=== PATIENT | female | born 1975 | race Caucasian/White ===

== ENCOUNTER → 2018-06-02 10:47 | Outpatient (CLI) | payer OTHER, SELFPAY ==
[2015-08-19 22:17] VITALS: BMI 38.1
[2018-06-04 14:45] LABS: HPV APTIMA, High Risk Positive (Negative)
== END ==
PROVIDERS: PCP Family Medicine; Visit Provider Obstetrics & Gynecology
DX: Z12.4 Encounter for screening for malignant neoplasm of cervix (principal)
CPT/HCPCS: 87624; 88175; G0145

== ENCOUNTER → 2018-06-11 13:55 | Outpatient (CLI) | payer OTHER, SELFPAY ==
[2015-08-19 22:17] VITALS: BMI 38.1
--- NOTE | 2018-06-11 | VAGMU_PTH ---
PATIENT: ROBERTO WILBURN LOC: ED U#:[id number] AGE/SX: 49/F ROOM: RE06/11/[address]: Dr. Altagracia Castro MD : 1975 BED: DIS: SPEC #: [id number] RECD: 06/11/18 13:49 STATUS: LETICIA LENORA #: [id number] AYDEN: 06/11/18 00:[address]: Altagracia Ha DEPT: SURGICAL PATHOLOGY RECD BY: Edson Tillman ENTERED: 06/11/18 14:10 SP TYPE: VAG MUCOSA OTHR DR: Dr. Britany Eugene MD Tissues: Vagina, NOS Procedures: Surgery Specimen Level III HEADER OPERATION: Colposcopy with biopsy PRE-OP DIAGNOSIS: RADHA R87.612 TISSUE SUBMITTED: Vaginal biopsy MICROSCOPIC DIAGNOSIS Vaginal biopsy: A fragment of squamous mucosa, negative for dysplasia. SJ:stacie 06/12/18 COMMENT Clinical correlation and appropriate follow up are necessary. Please make reference to previous specimen ([id number]), uterus, bilateral fallopian tubes with diagnosis of cervix, chronic inflammation and squamous metaplasia, negative for dysplasia, endometrium, secretory endometrium, myometrium, intramural leiomyomas and bilateral fallopian tubes, no pathologic diagnosis. MICROSCOPIC DESCRIPTION Slides are reviewed. GROSS DESCRIPTION Received in fixative is one container labeled with the patient's name and designated vaginal biopsy. The specimen consists of a single irregular fragment of pink-villareal soft tissue measuring 0.3 x 0.2 x 0.2 cm. The specimen is totally submitted in one cassette. / AM:stacie 06/11/18 TC:4 CPT: 80632
== END ==
PROVIDERS: Family Provider Family Medicine; PCP Family Medicine; Referring Provider Obstetrics & Gynecology; Visit Provider Obstetrics & Gynecology
DX: R87.612 Low grade squamous intraepithelial lesion on cytologic smear of cervix (LGSIL) (principal)
CPT/HCPCS: 88304

== ENCOUNTER → 2019-03-23 16:20 | Outpatient (CLI) | payer OTHER, SELFPAY ==
[2015-08-19 22:17] VITALS: BMI 38.1
[2019-03-29 14:45] LABS: HPV APTIMA, High Risk Negative (Negative)
== END ==
PROVIDERS: PCP Family Medicine; Referring Provider Obstetrics & Gynecology; Visit Provider Obstetrics & Gynecology
DX: R87.612 Low grade squamous intraepithelial lesion on cytologic smear of cervix (LGSIL) (principal)
CPT/HCPCS: 87624; 88175; G0145

== ENCOUNTER → 2022-06-21 | Outpatient (CLI) | payer OTHER, SELFPAY ==
--- NOTE | 2022-06-21 15:24 | BI_ITS ---
MAMMOGRAPHY - BILATERAL SCREENING REASON FOR EXAM: Female, 46 years old. Routine annual screening examination. PERTINENT HISTORY: Non-contributory. TECHNIQUE: Digital bilateral breast liliana (3D mammographic acquisition) in the CC and MLO projections. 2-D mediolateral oblique (MLO) and craniocaudad (CC) views of both breasts were obtained. CAD: Full Field Digital Mammography with Computer Added Detection was performed. COMPARISON: None. Baseline examination. FINDINGS: Breast Composition: There are scattered areas of fibroglandular density. There are no dominant masses or suspicious calcifications. Small benign-appearing left axillary nodes. No other significant abnormalities are identified. BI/SCRN MAMM (CAD)W/LILIANA BILAT IMPRESSION: Negative screening mammogram. Yearly followup mammogram recommended. (A) ASSESSMENT CATEGORY: BIRADS Category 1: Negative. A letter regarding these results will be sent to the patient by the facility within 30 days. Approximately 10% of breast cancers are not detected by mammography. A normal mammogram should not delay biopsy of a clinically suspicious abnormality. [id number] Electronically Signed: Payam Regan MD at 8:23 EDT ,
== END | disposition home or self-care (01) ==
LOC: OPBI 15:23
PROVIDERS: PCP Family Medicine; Referring Provider Obstetrics & Gynecology; Visit Provider Obstetrics & Gynecology
DX: Z12.31 Encounter for screening mammogram for malignant neoplasm of breast (principal)
CPT/HCPCS: 77063; 77067

== ENCOUNTER 2024-04-17 22:40 | Emergency (ER) | payer OTHER, SELFPAY ==
[2024-04-17 22:41] VITALS: BP 155/89; PULSE 62; RESP 16; TEMP 36.5; O2SAT 100; BMI 36.1
--- NOTE | 2024-04-17 23:10 | EKG12_ITS ---
Test Reason : ABD PAIN Blood Pressure : */* mmHG Vent. Rate : 59 BPM Atrial Rate : 59 BPM P-R Int : 160 ms QRS Dur : 92 ms QT Int : 458 ms P-R-T Axes : 44 40 62 degrees QTcB Int : 453 ms Sinus bradycardia Otherwise normal ECG Confirmed by YESSY YAO, MATILDE ([id number]), associate editor TERRIE FERRER ([id number]) on 04/19/2024 8:23:44 AM Referred By: Confirmed By: MATILDE KRISHNAMURTHY MD
[2024-04-17 23:19] LABS: Bacteria 0 SEEN /hpf (None Seen); Mucous, Urine 0 SEEN /hpf (<or=2+); Squamous Epithelial Cells - UA 0 SEEN /hpf (5-10); White Blood Cells 0 SEEN /hpf (0-5)
[2024-04-17] MEDS: 0.9% Normal Saline (1000mL) 1,000 ML 999 ML IV (23:19)
[2024-04-17] MEDS: Mag Hydrox/Al Hydrox/Simeth 30 ML UDC PO (23:19)
[2024-04-17] MEDS: Lidocaine 2% Viscous15 ML UDC 15 ML PO (23:19)
[2024-04-17] MEDS: Famotidine 200 MG/20 ML MDV 20 MG in 0.9% Normal Saline (Pres. free 8 ML 300 MG IV (23:19)
[2024-04-17 23:21] LABS: Absolute Lymphocyte Count 1.51 X10^3/uL (0.83-4.51); Absolute Neutrophil Count 3.8 X10^3/uL (2.0-7.7); Basophil# 0.02 X10^3/uL; Basophil% 0.3 % (0-1); Eosinophil# 0.05 X10^3/uL; Eosinophils% 0.9 % (0-5); Hematocrit 40.8 % (37-47); Hemoglobin 13.4 g/dL (12.0-15.0); Lymphocyte # 1.51 X10^3/ul (0.83-4.51); Lymphocyte % 26.3 % (19-41); Mean Corp Hgb Conc 32.8 g/dL (32-36); Mean Corpuscular Hgb 29.6 pg (27.0-32.0); Mean Corpuscular Volume 90.3 fL (81-99); Mean Platelet Vol. 11.6 fl (6.2-12.0); Monocyte# 0.35 X10^3/uL; Monocyte% 6.1 % (0-10); NRBC Flagged by Analyzer 0 % (0-5); Neutrophil # 3.79 X10^3/uL (2.7-7.7); Neutrophil % 66.1 % (47-70); Platelet Count 151 K/mm3 (150-450); RBC Distribution Width CV 13.1 % (11.6-14.6); RBC Distribution Width SD 43.2 fl (35.1-43.9); Red Blood Count 4.52 M/mm3 (4.2-5.4); White Blood Count 5.7 K/mm3 (4.4-11.0)
[2024-04-17 23:22] LABS: Color, Urine Straw (Yellow); Glucose, Dipstick Normal (Normal); Ketone-Dipstick Negative (Negative); Leukocyte Esterase-Dipstick Negative /ul (Negative); Nitrite-Dipstick Negative (Negative); Occult Blood-Urine Negative /ul (Negative); Protein-Dipstick Negative (Negative); Urine Bilirubin Dipstick Negative (Negative); Urine Clarity Clear (Clear); Urine Urobilinogen Normal (Normal)
[2024-04-17 23:30] LABS: Internal QC Validated? YES +Cl - CLEAR BKGD; Pregnancy, Urine Negative Negative; Red Blood Cells-Urine 0 SEEN /hpf (0-5)
[2024-04-17 23:39] LABS: AST(SGOT) 18 U/L (15-37); Alanine Aminotransfer ALT/SGPT 23 U/L (13-56); Alkaline Phosphatase 80 U/L (45-117); Anion Gap 7 (5-15); BUN 12 mg/dL (7-18); BUN/Creat Ratio 20.5 RATIO (10-20); Calcium,Total 9.1 mg/dL (8.5-10.1); Chloride 105 mmol/L (98-107); Creatinine, Serum 0.59 mg/dL (0.55-1.02); EST Glomerular Filtration Rate 117 mL/min (>60); Est Glom Filt Rate - Afr Amer 141 mL/min (>60); Estimated Creatinine Clearance 136.87 ml/min; Globulin 3.4 g/dL (2.2-4.2); Glucose 85 mg/dL (74-106); Lipase 18 U/L (73-393); Potassium 3.3 mmol/L (3.5-5.1); Protein, Total 7.4 g/dL (6.4-8.2); Sodium Level 139 mmol/L (136-145)
--- NOTE | 2024-04-17 23:40 | EDS_ITS ---
HPI History of Present Illness Chief Complaint: Abd Pain Informant: patient Narrative Narrative: Patient is a 48-year-old female with a past medical history of hypothyroidism. She recently saw general surgery and is scheduled to have an EGD and colonoscopy this upcoming Friday secondary to issues with chronic reflux/GERD and change in bowel habits. She states that today she started with her prep for the EGD and this afternoon noticed increasing pain in the right upper quadrant and midepigastric region. She states the symptoms have not resolved and secondary to this comes in for evaluation. 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 Menometrorrhagia Vertigo Home Medications ?Medication ?Instructions ?Recorded ?Last Taken ?Type estradiol 0.075 mg/24 hr 1 patch transdermal 2XW 04/03 Unknown History semiweekly transdermal patch iron, carbonyl 45 mg tablet 45 mg PO MOWE 04/12/24 Unk nown History levothyroxine 75 mcg capsule 75 mcg PO QDAY 04/12/24 U nknown History multivitamin 1 tab PO QDAY 04/12/24 Unkno wn History Allergy/AdvReac Type Severity Reaction Status Date / Time erythromycin base Allergy KEEPS ME Verified 04/17/24 22:41 AWAKE Penicillins Allergy Hives Verified 04/17/24 22:41 Family History Mother Diabetes Hypertension Surgical History History of partial hysterectomy Social History Smoking Status: Never smoker alcohol intake: current substance use type: does not use ROS ROS ED Constitutional Constitutional ED: Denies chills or fever(s) Eyes Eyes: Denies change in vision or diplopia ENT ENT ED: Denies sore throat Cardiovascular Cardiovascular: Denies chest pain Respiratory/Chest Respiratory/Chest: Denies cough or dyspnea Gastrointestinal Gastrointestinal: Reports abdominal pain and nausea; Denies diarrhea or vomiting Genitourinary Genitourinary ED: Reports urinary frequency; Denies dysuria or hematuria Musculoskeletal Musculoskeletal: Reports back pain Integumentary Denies rash Neurologic Neurologic: Denies headache(s) Hematologic/Lymphatic Hematologic/Lymphatic: Denies easy bleeding or easy bruising EXAM Physical Exam Const Vital Signs: 04/17/24 22:41 Temperature 97.7 F L Temperature Source Oral Pulse Rate 62 Respiratory Rate 16 Blood Pressure 155/89 H Blood Pressure Mean 111 Pulse Ox 100 Oxygen Delivery Method Room Air Positive well nourished and well developed General Appearance ED: well developed; Negative for pallor HEENT Reports moist mucous membranes HEENT Narrative: No tongue or lip swelling no oral lesions no airway edema or compromise No findings in the posterior pharynx to suggest infection Eyes PERRL and EOMs intact bilaterally General Eye ED: Negative for scleral icterus Neck supple Chest Wall palpation of chest normal Resp normal respiratory effort and clear to auscultation bilaterally Cardio regular rate and regular rhythm Rate: other Other Details: Heart is regular rate and rhythm without murmurs rubs or gallops Radial and carotid pulses are equal and symmetric GI non-distended and no masses GI Narrative: Abdomen is soft and nondistended with normal active bowel sounds. Patient has pain with palpation in the midepigastric and right upper quadrant region. However no voluntary guarding or rigidity. No peritoneal signs. No pulsatile mass or fluid wave. Negative Kelsey sign. Auscultation: normoactive bowel sounds Palpation: soft Back/Spine no CVA tenderness Extremity normal to inspection Neuro oriented x3, CN's II-XII intact bilaterally and no sensory deficits noted Sensorium / Orientation: alert Motor Exam: strength 5/5 throughout Psych mental status grossly normal Skin no rashes or lesions noted General Skin Exam: Negative for jaundice or pallor MDM MDM MDM Narrative Medical decision making narrative: Patient arrived to the ER with stable vitals and a soft nonsurgical abdomen. She is already seen general surgery and she is scheduled for an EGD and colonoscopy as there is high likelihood for gastritis/duodenitis and ulcer. With pain in the right upper quadrant and midepigastric region that is most likely diagnosis but as this could be biliary colic versus acute cholecystitis versus pancreatitis I did elect to perform basic laboratory studies. With upper abdominal pain there is always concern for inferior wall of the heart as well so an EKG was obtained. EKG showed no ischemic changes going against acute coronary syndrome. Blood work showed no white count or left shift going against infectious process. Urine sample reveals no infection or blood going against UTI pyelonephritis or kidney stone. Lipase is normal going against pancreatitis and liver enzymes are normal going against a biliary issue. After receiving IV fluids Pepcid and GI cocktail patient did report mild to moderate improvement of her pain. We discussed that we could perform a CT scan for further evaluation but I have low concern that patient has acute cholecystitis a perforated ulcer or obstructive process. The patient states that she does not want to undergo any imaging as she is scheduled to have an EGD in a few days. Therefore at this time with negative workup stable vitals and a persistently nonsurgical abdomen s hould be discharged home and advised to return if symptoms worsen. History & Record Review Discussion w/independent historian: Patient Lab Data Attestation: I reviewed the patient's lab results. Labs: Laboratory Results - last 24 hr 04/17/24 23:05 WBC 5.7 RBC 4.52 Hgb 13.4 Hct 40.8 MCV 90.3 MCH 29.6 MCHC 32.8 RDW Std Deviation 43.2 RDW Coeff of Terrell 13.1 Plt Count 151 MPV 11.6 Immature Gran % (Auto) 0.300 Neut % (Auto) 66.1 Lymph % (Auto) 26.3 Cedar % (Auto) 6.1 Eos % (Auto) 0.9 Baso % (Auto) 0.3 Absolute Neuts (auto) 3.8 Absolute Lymphs (auto) 1.51 Nucleated RBC % 0 Sodium 139 Potassium 3.3 L Chloride 105 Carbon Dioxide 27.0 Anion Gap 7 BUN 12 Creatinine 0.59 Estim Creat Clear Calc 136.87 Est GFR (MDRD) Af Amer 141 Est GFR (MDRD) Non-Af 117 BUN/Creatinine Ratio 20.5 H Glucose 85 Calcium 9.1 Total Bilirubin 0.60 Direct Bilirubin 0.20 AST 18 ALT 23 Alkaline Phosphatase 80 Total Protein 7.4 Albumin 4.0 Globulin 3.4 Lipase 18 L Urine Color Straw Urine Clarity Clear Urine pH 8.0 Ur Specific [place] 1.010 Urine Protein Negative Urine Glucose (UA) Normal Urine Ketones Negative Urine Occult Blood Negative Urine Nitrite Negative Urine Bilirubin Negative Urine Urobilinogen Normal Ur Leukocyte Esterase Negative Urine RBC 0 SEEN Urine WBC 0 SEEN Ur Squamous Epith Cells 0 SEEN Urine Bacteria 0 SEEN Urine Mucus 0 SEEN Urine Test Negative Discharge Plan Triage Chief Complaint: Abd Pain ED Provider: Alex Rubi Dx/Rx/DC Orders Clinical Impression: Upper abdominal pain, Gastritis and duodenitis, Hypothyroidism Instructions: Abdominal Pain, Duodenitis, ED Gastritis (Adult) Prescriptions: No Action iron, carbonyl 45 mg tablet 45 mg PO MOWE multivitamin Tablet 1 tab PO QDAY levothyroxine 75 mcg capsule 75 mcg PO QDAY estradiol 0.075 mg/24 hr patch semiweekly 1 patch transdermal 2XW Rx Instructions: apply 1 patch for 3 days alternating with 1 patch for 4 days each week for 3 wks per 4-wk cycle Primary Care Provider: Norah Joyce Referrals: Norah Joyce MD [Primary Care Provider] - Activity Restrictions/Additional Instructions: Please obtain your EGD and colonoscopy on Friday as previously scheduled. I do feel that your symptoms this evening are related to stomach and intestinal inflammation/ulcer. If you develop a fever or have worsening pain or any further concerns please return to the ER for repeat evaluation Print Language: Upper Sorbian Disposition Disposition: Home, Self Care
[2024-04-18] MEDS: Pantoprazole Sodium 40 MG in 0.9% Normal Saline (100mL MB+) 100 ML 330 MG IV (00:37)
[2024-04-18 00:41] VITALS: BP 122/74; PULSE 86; RESP 12; TEMP 37; O2SAT 100
== END 2024-04-18 01:04 | disposition home or self-care (01) ==
PROVIDERS: Emergency Provider Emergency Medicine; PCP Family Medicine; Visit Provider Emergency Medicine
DX: R10.11 Right upper quadrant pain (principal); R10.13 Epigastric pain; K29.70 Gastritis, unspecified, without bleeding; K29.80 Duodenitis without bleeding; R35.0 Frequency of micturition; E03.9 Hypothyroidism, unspecified; K21.9 Gastro-esophageal reflux disease without esophagitis; Z79.890 Hormone replacement therapy
CPT/HCPCS: 80048; 80076; 81001; 81025; 83690; 85025; 93005; 96365; 96367; 99282; A4216

== ENCOUNTER 2024-04-20 08:46 | Day surgery (SDC) | payer OTHER, SELFPAY ==
[2024-04-20] VITALS (9 sets, daily range): BP systolic 90–134; BP diastolic 59–88; PULSE 52–65; RESP 16; TEMP 36.1–36.6; O2SAT 99–100; BMI 34.8
--- NOTE | 2024-04-20 09:36 | PRE.ANES_ITS ---
ASA Classification* ASA Classification ASA Classification: 2 Assessment & Plan Anesthesia* Anesthesia Assessment Anesthesia Assessment: Discussed sedation and/or anesthesia options, risks, benefits, and alternatives with patient/parents/legal guardian/POA. Questions invited. The patient/parents/legal guardian/POA seems to understand and agrees to proceed with anesthesia plan. Reviewed the physical assessment, medical history, allergy history and patient home medications list prior to surgery/procedure/anesthetic and documented any changes. Performed airway and anesthesia risk assessments. Anesthesia Type Anesthesia Type: MAC History Source History Obtained from:: Patient and Chart Anesthesia Focused Assessment* Temperature: 97.8 F Pulse Rate: 65 Blood Pressure: 134/88 Respiratory Rate: 16 Pulse Ox: 100 Oxygen Delivery Method: Room Air Airway Assessment Mouth opens: >3 cm Mallampati Score: III Teeth Condition: Intact Neck Range of motion (ROM): Limited ROM (Slight decrease in extension) Focused Labs Anesthesia Preop lab: CBC WBC 5.7 K/mm3 (4.4-11.0) 04/17/24 23:05 04/17/24 RBC 4.52 M/mm3 (4.2-5.4) 04/17/24 23:05 04/17/24 Hgb 13.4 g/dL (12.0-15.0) 04/17/24 23:05 04/17/24 Hct 40.8 % (37-47) 04/17/24 23:05 04/17/24 Plt Count 151 K/mm3 (150-450) 04/17/24 23:05 04/17/24 CHEMISTRY Potassium 3.3 mmol/L (3.5-5.1) L 04/17/24 23:05 04/17/24 Sodium 139 mmol/L (136-145) 04/17/24 23:05 04/17/24 BUN 12 mg/dL (7-18) 04/17/24 23:05 04/17/24 Creatinine 0.59 mg/dL (0.55-1.02) 04/17/24 23:05 04/17/24 Glucose 85 mg/dL (74-106) 04/17/24 23:05 04/17/24 TSH 2.30 uIU/mL (0.358-3.74) 09/21/15 14:04 COAG PT 13.7 SECONDS (11.7-14.9) 08/01/15 17:25 Urine Test Negative Negative 04/17/24 23:05 04/17/24 Pre-Assessment Diagnosis/Proposed Procedure Planned Operative Procedure(s): EGD/CSCOPE Anesthesia History 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 When Was Last Pacemaker Check QUESTION #4 FULL TEXT: You/Your Family Experience fever (hyperthermia) with Anesthesia Last Oral Intake Last Oral intake: Last Oral Intake NPO since 00:00 04/20/24 09:10 Meds taken in AM with sips of water? Meds patient instructed to take am of surgery PONV PONV - candle molder machine: PONV - candle molder machine Female Yes 04/16/24 14:02 HX of Motion Sickness Yes 04/16/24 14:02 HX of N/V After Surgery No 04/16/24 14:02 Non-Smoker Yes 04/16/24 14:02 Duration of Surgery greater No 04/16/24 14:02 than 60 minutes Number of Risk Factors 3 04/16/24 14:02 PONV Score Moderate Risk 04/16/24 14:02 Height & Weight Height & Weight: Anesthesia: Height & Weight Height 5 ft 5 in 04/20/24 09:10 Weight: 95 kg 04/20/24 09:10 Body Mass Index (BMI) 34.8 04/20/24 09:10 Respiratory Assessment Respiratory Assessment - candle molder machine: Respiratory Tract Infection Hx - candle molder machine Hx Respiratory Tract Infection No 04/16/24 14:02 STOP Sleep Apnea STOP Sleep Apnea - candle molder machine: STOP Sleep Apnea - candle molder machine Hx Hypertension No 04/16/24 14:02 Hx Sleep Apnea No 04/16/24 14:02 CPAP No 04/16/24 14:02 BIPAP No 04/16/24 14:02 Do you snore loudly (louder No 04/16/24 14:02 than talking or can be heard Do you often feel tired/ Yes 04/16/24 14:02 fatigued/ sleepy during daytime? Has anyone observed you stop No 04/16/24 14:02 breathing during sleep? STOP Results Negative 04/16/24 14:02 QUESTION #5 FULL TEXT : Do you snore loudly (louder than talking or can be heard through closed doors)? 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 Specify any problems Hx of Preganancy in last 3 No 04/16/24 14:02 Months Nurse Filling Out Transfusion DSCHRIBER 04/16/24 14:02 & Questions: Date: 04/16/24 04/16/24 14:02 Time: 14:03 04/16/24 14:02 Patient unable to answer at this time (ie. 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 Menometrorrhagia Vertigo Home Medications ?Medication ?Instructions ?Recorded ?Last Taken ?Type estradiol 0.075 mg/24 hr 1 patch transdermal 2XW 04/0304/06/24 History semiweekly transdermal patch iron, carbonyl 45 mg tablet 45 mg PO MOWE 04/12/2401/25 History levothyroxine 75 mcg capsule 75 mcg PO QDAY 04/12/24 0 04/18/24 History multivitamin 1 tab PO QDAY 04/12/2404/18 History Allergy/AdvReac Type Severity Reaction Status Date / Time erythromycin base Allergy KEEPS ME Verified 04/20/24 09:08 AWAKE Penicillins Allergy Hives Verified 04/20/24 09:08 Family History Mother Diabetes Hypertension Surgical History History of partial hysterectomy Social History Smoking Status: Never smoker alcohol intake: current substance use type: does not use Review of Systems (Anesthesia) ROS Narrative System reviewed and no additional complaints, except as documented.
--- NOTE | 2024-04-20 09:45 | IMM_PTH ---
PATIENT: ROBERTO WILBURN LOC: EN U#:[id number] AGE/SX: 48/F ROOM: RE04/20/[address]: Dr. Fabio Kelly MD : 1975 BED: DIS: 04/20/2024 SPEC #: [id number] RECD: 04/20/24 15:51 STATUS: LETICIA REQ #: [id number] AYDEN: 04/20/24 09:[address]: Fabio Kelly DEPT: IMMUNOHISTOCHEMISTRY RECD BY: Todd Sandhu ENTERED: 04/20/24 15:51 SP TYPE: IMMUNO OTHR DR: Dr. Norah Joyce MD Tissues: B - Gastric mucous membrane Procedures: H Pylori (initial) PHYSICIAN & INSTITUTION [place] [address] SPECIMEN INFORMATION: Tissue Source: B. Antrum biopsy Clinical Info: Upper abdominal pain, screening for intestinal cancer Specimen Number: [id number] CPT code: 88588 METHODOLOGY: Deparaffinized sections of prefer/formalin-fixed tissue or PAP/DQ stained slides are incubated with monoclonal/polyclonal antibodies/oligonucleotide probes. Localization is made via biotin free immunoperoxidase method. Appropriate controls are performed and reacted as expected. Results on target cell population are indicated in the following table: RESULTS: ANTIBODY / CLONE RESULT Block B H Pylori (polyclonal) negative These tests were developed and their performance characteristics determined by [facility]. They may not have been cleared or approved by the U.S. Food and Drug Administration. The FDA has determined that such clearance or approval is not necessary. The above immunohistochemical/dualISH markers are ordered and reviewed by the Pathologist. INTERPRETATION: B. Antrum, biopsy: Negative for Helicobacter pylori organisms. 04/21/2024
--- NOTE | 2024-04-20 09:45 | EGD_PTH ---
PATIENT: ROBERTO WILBURN LOC: EN U#:[id number] AGE/SX: 48/F ROOM: RE04/20/[address]: Dr. Fabio Kelly MD : 1975 BED: DIS: 04/20/2024 SPEC #: [id number] RECD: 04/20/24 13:06 STATUS: LETICIA LENORA #: [id number] AYDEN: 04/20/24 09:[address]: Fabio Kelly DEPT: SURGICAL PATHOLOGY RECD BY: Marlyn Contreras ENTERED: 04/20/24 13:32 SP TYPE: EGD BIOPSY OT DR: Dr. Norah Joyce MD Tissues: A - Duodenum, NOS B - Gastric mucous membrane C - Esophagus, NOS Procedures: Special Stain Group I Surgery Specimen Level IV Alcian Blue/PAS (control) HEADER OPERATION: Colonoscopy, EGD, biopsy PRE-OP DIAGNOSIS: Upper abdominal pain, screening for intestinal cancer TISSUE SUBMITTED: A- Duodenum biopsy, B- Antrum biopsy, C- Gastroesophageal junction biopsy MICROSCOPIC DIAGNOSIS A. Duodenum, biopsy: A fragment of duodenal mucosa, no pathologic diagnosis. B. Antrum, biopsy: Mild gastritis. See microscopic description and comment. C. Gastroesophageal junction, biopsy: Fragments of gastric mucosa with mild chronic inflammation. Intestinal metaplasia (goblet cell metaplasia) not identified. See comment. 04/21/2024 COMMENT B. The results of immunohistochemistry for Helicobacter pylori will be reported separately ([id number]). C. Alcian blue/PAS stain with matched control is used in the evaluation of the specimen. MICROSCOPIC DESCRIPTION Slides are reviewed. B. The specimen shows fragments of gastric mucosa with chronic inflammatory cell infiltrates in the lamina propria consisting of lymphocytes and plasma cells, consistent with mild chronic gastritis. GROSS DESCRIPTION A. Received in fixative is one container labeled with the patient's name and designated Duodenum biopsy. The specimen consists of one irregular fragment of light villareal soft tissue that measures 0.5 x 0.4 x 0.2 cm. The specimen is totally submitted in one cassette. B. Received in fixative is one container labeled with the patient's name and designated Antrum biopsy. The specimen consists of one irregular fragment of light villareal soft tissue that measures 0.4 x 0.3 x 0.2 cm. The specimen is totally submitted in one cassette. C. Received in fixative is one container labeled with the patient's name and designated GE junction biopsy. The specimen consists of two irregular fragments of light villareal soft tissue that in aggregate measure 1.1 x 0.3 x 0.2 cm. The specimen is totally submitted in one cassette. 04/20/2024 TC:3 CPT:06103y9,64069
--- NOTE | 2024-04-20 09:49 | PCM.HP.STD ---
[facility] - General General Date of Admission: 04/20/24 Date of Service: 04/20/24 Chief Complaint: EGD and colonoscopy [facility] Narrative patient is a 48-year-old female who is being seen today for EGD and colonoscopy. She states that she has been having some significant issues with what sounds to be heartburn or reflux. She brought this to the attention of her primary care provider and they have suggested that she be seen for EGD and colonoscopy. She has never had a colonoscopy. She has no family history of colon polyps or colon cancers. 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 Menometrorrhagia Vertigo Home Medications ?Medication ?Instructions ?Recorded ?Last Taken ?Type estradiol 0.075 mg/24 hr 1 patch transdermal 2XW 04/12/24 04/06/24 History semiweekly transdermal patch iron, carbonyl 45 mg tablet 45 mg PO MOWE 04/12/24 04/13/24 History levothyroxine 75 mcg capsule 75 mcg PO QDAY 04/12/24 04/18/24 History multivitamin 1 tab PO QDAY 04/12/24 04/18/24 History Allergy/AdvReac Type Severity Reaction Status Date / Time erythromycin base Allergy KEEPS ME Verified 04/20/24 09:08 AWAKE Penicillins Allergy Hives Verified 04/20/24 09:08 Family History Mother Diabetes Hypertension Surgical History History of partial hysterectomy Social History Smoking Status: Never smoker alcohol intake: current substance use type: does not use ROS Constitutional Constitutional: Reports systems reviewed and no addt'l complaints, except as documented Eyes Eyes: Reports systems reviewed and no addt'l complaints, except as documented ENT HEENT: Reports systems reviewed and no addt'l complaints, except as documented Cardiovascular Cardiovascular: Reports systems reviewed and no addt'l complaints, except as documented Respiratory/Chest Respiratory/Chest: Reports systems reviewed and no addt'l complaints, except as documented Gastrointestinal Gastrointestinal: Reports systems reviewed and no addt'l complaints, except as documented Genitourinary Genitourinary: Reports systems reviewed and no addt'l complaints, except as documented Musculoskeletal Musculoskeletal: Reports systems reviewed and no addt'l complaints, except as documented Integumentary Integumentary: Reports systems reviewed and no addt'l complaints, except as documented Neurologic Neurologic: Reports systems reviewed and no addt'l complaints, except as documented Vital Signs Vital Signs Vital Signs: 04/20/24 09:10 04/20/24 09:10 04/20/24 09:45 Temperature 97.8 F 97.8 F Temperature Source Temporal Pulse Rate 65 65 Respiratory Rate 16 16 Respiratory Pattern Normal Blood Pressure 134/88 H 134/88 H Blood Pressure Mean 103 Blood Pressure Source Monitor Blood Pressure Position Semi-Fowlers Blood Pressure Location Left Arm Pulse Ox 100 100 Oxygen Delivery Method Room Air Room Air Weight Weight: 209 lb 7.026 oz Body Mass Index (BMI) 34.8 Physical Exam Const alert, oriented x3 and no apparent distress Assessment & Plan Assessment/Plan (1) Upper abdominal pain: (2) Screening for intestinal cancer: PLAN: The patient is a 48-year-old female here today for an EGD and colonoscopy. We reviewed the details of the planned procedure and she wishes to proceed. Procedure will begin momentarily
--- NOTE | 2024-04-20 10:46 | PCM.POST.ANE ---
Anesthesia: Postop Eval I Current Vital Signs Temperature: 97 F Pulse Rate: 57 Blood Pressure: 93/64 Respiratory Rate: 16 Pulse Ox: 99 Oxygen Delivery Method: Room Air Assessment Airway patent: Yes Spontaneous unlabored respirations: Yes Mental status: Asleep nausea: No Vomiting: No Anesthesia Complication: No Fluid Hydration Crystalloid volume administer (ml): 90 Total IV fluid infused: 90 Progress Note Anesthesia document: Postop Eval 1 completed: Yes
--- NOTE | 2024-04-20 10:54 | OP.CCLET_ITS ---
04/20/2024 Norah Joyce [address] [address] Re : Upper GI endoscopy procedure for Nicole Balderas Dear Dr. Joyce This procedure was performed on Saturday, April 20, 2024. My impressions and recommendations are as follows: Impressions : - Erythematous duodenopathy. Biopsied. - Erythematous mucosa in the antrum. Biopsied. - Normal esophagus. Biopsied. Recommendations : - Discharge patient to home (ambulatory). - High fiber diet. - Use a proton pump inhibitor PO. - Continue present medications. My findings are described in the full procedure note, which is enclosed. If I can be of further assistance, please feel free to contact me at . Sincerely, Fabio Kelly MD 04/20/2024 10:53:54 AM This report has been signed electronically.
--- NOTE | 2024-04-20 10:54 | OP.EGD_ITS ---
Patient Name: Nicole Balderas Procedure Date: 04/20/2024 9:52 AM Date of : 1975 Age: 48 Procedure: Upper GI endoscopy Indications: Heartburn Providers: Fabio Kelly MD Medicines: Monitored Anesthesia Care Patient Profile: Refer to note in patient chart for documentation of history and physical. Patient has symptoms of chronic heartburn. Complications: No immediate complications. Estimated blood loss: Minimal. Procedure: Pre-Anesthesia Assessment: - Prior to the procedure, a History and Physical was performed, and patient medications and allergies were reviewed. The patient's tolerance of previous anesthesia was also reviewed. The risks and benefits of the procedure and the sedation options and risks were discussed with the patient. All questions were answered, and informed consent was obtained. Prior Anticoagulants: The patient has taken no anticoagulant or antiplatelet agents. ASA Grade Assessment: II - A patient with mild systemic disease. After reviewing the risks and benefits, the patient was deemed in satisfactory condition to undergo the procedure. After obtaining informed consent, the endoscope was passed under direct vision. Throughout the procedure, the patient's blood pressure, pulse, and oxygen saturations were monitored continuously. The Endoscope was introduced through the mouth, and advanced to the second part of duodenum. The upper GI endoscopy was accomplished without difficulty. The patient tolerated the procedure well. Moderate Sedation: See the other procedure note for documentation of moderate sedation with intraservice time. Scope In: 10:03:24 AM Scope Out: 10:11:04 AM Total Procedure Duration Time 0 hours 7 minutes 40 seconds Findings: Patchy mildly erythematous mucosa without active bleeding and with no stigmata of bleeding was found in the first portion of the duodenum. This was biopsied with a cold forceps for histology. Verification of patient identification for the specimen was done by the nurse using the patient's name, date and medical record number. Estimated blood loss was minimal. Diffuse moderately erythematous mucosa without bleeding was found in the gastric antrum. Biopsies were taken with a cold forceps for Helicobacter pylori testing. Verification of patient identification for the specimen was done by the nurse using the patient's name, date and medical record number. Estimated blood loss was minimal. The examined esophagus was normal. Mucosa was biopsied with a cold forceps for histology randomly at the gastroesophageal junction. Verification of patient identification for the specimen was done by the nurse using the patient's name, date and medical record number. Estimated blood loss was minimal. Impression: - Erythematous duodenopathy. Biopsied. - Erythematous mucosa in the antrum. Biopsied. - Normal esophagus. Biopsied. Recommendation: - Discharge patient to home (ambulatory). - High fiber diet. - Use a proton pump inhibitor PO. - Continue present medications. Procedure Code(s): --- Professional --- 57102, Esophagogastroduodenoscopy, flexible, transoral; with biopsy, single or multiple Diagnosis Code(s): --- Professional --- R12, Heartburn K31.89, Other diseases of stomach and duodenum CPT copyright 2021 [employer]. All rights reserved. The codes documented in this report are preliminary and upon plant culture manager review may be revised to meet current compliance requirements. Fabio Kelly MD 04/20/2024 10:53:54 AM This report has been signed electronically. Number of Addenda: 0 Note Initiated On: 04/20/2024 9:52 AM
--- NOTE | 2024-04-20 10:56 | OP.COLON_ITS ---
Patient Name: Nicole Balderas Procedure Date: 04/20/2024 10:12 AM Date of : 1975 Age: 48 Procedure: Colonoscopy Indications: Screening for colorectal malignant neoplasm Providers: Fabio Kelly MD Medicines: Monitored Anesthesia Care Patient Profile: Refer to note in patient chart for documentation of history and physical. Patient has symptoms of chronic heartburn. Refer to note in patient chart for documentation of history and physical. Last Colonoscopy: none. The patient's first colonoscopy is today. Complications: No immediate complications. Estimated blood loss: Minimal. Procedure: Pre-Anesthesia Assessment: - Prior to the procedure, a History and Physical was performed, and patient medications and allergies were reviewed. The patient's tolerance of previous anesthesia was also reviewed. The risks and benefits of the procedure and the sedation options and risks were discussed with the patient. All questions were answered, and informed consent was obtained. Prior Anticoagulants: The patient has taken no anticoagulant or antiplatelet agents. ASA Grade Assessment: II - A patient with mild systemic disease. After reviewing the risks and benefits, the patient was deemed in satisfactory condition to undergo the procedure. After I obtained informed consent, the scope was passed under direct vision. Throughout the procedure, the patient's blood pressure, pulse, and oxygen saturations were monitored continuously. The adult colonoscope was introduced through the anus and advanced to the cecum, identified by appendiceal orifice and ileocecal valve. The ileocecal valve, appendiceal orifice, and rectum were photographed. The entire colon was well visualized. The colonoscopy was performed without difficulty. The patient tolerated the procedure well. The quality of the bowel preparation was adequate. Moderate Sedation: See the other procedure note for documentation of moderate sedation with intraservice time. See the other procedure note for documentation of moderate sedation with intraservice time. Scope In: 10:14:03 AM Scope Withdrawal Time 0 hours 10 minutes 12 seconds Scope Out: 10:37:56 AM Total Procedure Duration Time 0 hours 23 minutes 53 seconds Findings: The perianal and digital rectal examinations were normal. The entire examined colon appeared normal on direct and retroflexion views. Impression: - The entire examined colon is normal on direct and retroflexion views. - No specimens collected. Recommendation: - Discharge patient to home (ambulatory). - High fiber diet. - Repeat colonoscopy in 10 years for screening purposes. - Return to my office PRN. - Continue present medications. Procedure Code(s): --- Professional --- 17580, Colonoscopy, flexible; diagnostic, including collection of specimen(s) by brushing or washing, when performed (separate procedure) Diagnosis Code(s): --- Professional --- Z12.11, Encounter for screening for malignant neoplasm of colon CPT copyright 2021 [employer]. All rights reserved. The codes documented in this report are preliminary and upon night guard review may be revised to meet current compliance requirements. Fabio Kelly MD 04/20/2024 10:56:19 AM This report has been signed electronically. Number of Addenda: 0 Note Initiated On: 04/20/2024 10:12 AM
--- NOTE | 2024-04-20 10:57 | OP.CCLET_ITS ---
04/20/2024 Norah Joyce [place] [id number] [address] Re : Colonoscopy procedure for Nicole Andrey Dear Dr. Joyce This procedure was performed on Saturday, April 20, 2024. My impressions and recommendations are as follows: Impressions : - The entire examined colon is normal on direct and retroflexion views. - No specimens collected. Recommendations : - Discharge patient to home (ambulatory). - High fiber diet. - Repeat colonoscopy in 10 years for screening purposes. - Return to my office PRN. - Continue present medications. My findings are described in the full procedure note, which is enclosed. If I can be of further assistance, please feel free to contact me at . Sincerely, Fabio Kelly MD 04/20/2024 10:56:19 AM This report has been signed electronically.
--- NOTE | 2024-04-20 10:57 | EX.PCM.DISCH ---
Discharge Instructions Diet Discharge Diet: Light diet - advance as tolerated Activity Discharge Activity: Return to Normal Activity Follow Up Care Test Results: Test results from this visit will be discussed in further detail at your follow-up appointment, if applicable. Discharge Plan Admission Primary Reason for Your Visit: EGD colonoscopy Attending Provider: Fabio Kelly Primary Care Provider: Norah Joyce Instructions Print Language: South African Discharge Orders/Prescriptions Prescriptions: New esomeprazole magnesium [Nexium] 40 mg capsule,delayed release(DR/EC) 40 mg PO DAILY 60 Days Qty: 60 0RF Continued iron, carbonyl 45 mg tablet 45 mg PO MOWE multivitamin Tablet 1 tab PO QDAY levothyroxine 75 mcg capsule 75 mcg PO QDAY estradiol 0.075 mg/24 hr patch semiweekly 1 patch transdermal 2XW Rx Instructions: apply 1 patch for 3 days alternating with 1 patch for 4 days each week for 3 wks per 4-wk cycle Referrals / Follow Up: Norah Joyce MD [Primary Care Provider] - Disposition Disposition (needs filled in before D/C Order can be placed): Home, Self Care
--- NOTE | 2024-04-20 14:07 | PCM.POSTANE2 ---
Anesthesia Postop Eval I Sum Postop Eval Completion status Anesthesia document: Postop Eval 1 completed: Yes Anesthesia Postop Eval I Summary Anesthesia Postop Eval I Summary: Anesthesia Postop Eval I: Assessment Summary Airway patent Yes 04/20/24 10:47 [email or web address] Spontaneous unlabored Yes 04/20/24 10:47 [email or web address] respirations Mental status Asleep 04/20/24 10:47 [email or web address] nausea No 04/20/24 10:47 [email or web address] Vomiting No 04/20/24 10:47 [email or web address] Anesthesia Postop Eval I: Fluid Summary Crystalloid volume administer 90 04/20/24 10:47 [email or web address] (ml) Colloids volume administered ( ml) Blood Product volume administered (ml) Total IV fluid infused 90 04/20/24 10:47 [email or web address] Anesthesia Postop Eval I: Summary Notes Anesthesia Complication No 04/20/24 10:47 [email or web address] Anesthesia Complication Comment: Post-operative progress note Anesthesia: Postop Eval II Evaluation Mental status: Awake and Calm Pain Level: 0 nausea: No Vomiting: No Complications Anesthesia Complication: No
== END 2024-04-20 11:34 | disposition home or self-care (01) ==
LOC: EN 08:47 → AC 08:48
PROVIDERS: PCP Family Medicine; Referring Provider Family Medicine; Visit Provider Surgery
PROC: 0DJD8ZZ Inspection of Lower Intestinal Tract, Via Natural or Artificial Opening Endoscopic (ICD-10-PCS; CPT 45378; principal; 2024-04-20 09:40)
DX: Z12.11 Encounter for screening for malignant neoplasm of colon (principal); R10.10 Upper abdominal pain, unspecified; R12 Heartburn; Z79.890 Hormone replacement therapy; Z79.899 Other long term (current) drug therapy; K29.70 Gastritis, unspecified, without bleeding
CPT/HCPCS: 45378; 43239; 88305; 88312; 88342; A4216; J2405

== ENCOUNTER 2024-04-23 15:06 | Emergency (ER) | payer OTHER, SELFPAY ==
[2024-04-23 15:08] VITALS: BP 113/55; PULSE 82; RESP 18; TEMP 36.1; O2SAT 100; BMI 35.4
--- NOTE | 2024-04-23 17:17 | ED.RN ---
Pt states she is going to [facility], states I'm in pain but I know I'm not as critical as come of these other people. Pt ambulated out of dept without difficulty.
== END 2024-04-23 17:17 | disposition left against medical advice (07) ==
LOC: ED 17:34
PROVIDERS: PCP Family Medicine
DX: R10.9 Unspecified abdominal pain (principal); Z53.21 Procedure and treatment not carried out due to patient leaving prior to being seen by health care provider

== ENCOUNTER → 2024-04-23 | Outpatient (CLI) | payer OTHER, SELFPAY ==
--- NOTE | 2024-04-23 11:21 | US_ITS ---
PROCEDURE: ABDOMEN LIMITED REASON FOR EXAM: Right upper quadrant pain. COMPARISON: None FINDINGS: Liver: Grossly normal size and echotexture. There is a 4 mm x 4 mm x 5 mm calcified granuloma in the right lobe of the liver. Gallbladder: No stones, sludge, wall thickening or tenderness. Positive sonographic Kelsey's sign. There is a 5 mm x 4 mm x 4 mm gallbladder polyp. Common bile duct: Normal measuring it measures 3 mm.. Pancreas: Visualized portions are sonographically unremarkable. Visualized portions of the right kidney are unremarkable. No right upper quadrant ascites. US/Abdomen Limited IMPRESSION: Calcified granuloma in the right lobe of the liver. 5 mm x 4 mm x 4 mm gallbladder polyp. Positive sonographic Kelsey's sign. Cor relation with a nuclear medicine hepatobiliary scan and gallbladder ejection fraction recommended. Reading Location: [place] [id number]
== END | disposition home or self-care (01) ==
LOC: US 11:16
PROVIDERS: PCP Family Medicine; Referring Provider Family Medicine; Visit Provider Family Medicine
DX: R10.11 Right upper quadrant pain (principal)
CPT/HCPCS: 76705

== ENCOUNTER → 2024-08-20 | Outpatient (CLI) | payer OTHER, SELFPAY ==
[2024-08-20 17:43] LABS: Absolute Lymphocyte Count 1.34 X10^3/uL (0.83-4.51); Basophil# 0.03 X10^3/uL; Basophil% 0.4 % (0-1); Eosinophil# 0.03 X10^3/uL; Eosinophils% 0.4 % (0-5); Hematocrit 41.3 % (37-47); Hemoglobin 13.6 g/dL (12.0-15.0); Lymphocyte # 1.34 X10^3/ul (0.83-4.51); Lymphocyte % 19.8 % (19-41); Mean Corp Hgb Conc 32.9 g/dL (32-36); Mean Corpuscular Hgb 30.2 pg (27.0-32.0); Mean Corpuscular Volume 91.6 fL (81-99); Mean Platelet Vol. 11.7 fl (6.2-12.0); Monocyte# 0.38 X10^3/uL; Monocyte% 5.6 % (0-10); NRBC Flagged by Analyzer 0 % (0-5); Neutrophil # 4.96 X10^3/uL (2.7-7.7); Neutrophil % 73.5 % (47-70); Platelet Count 166 K/mm3 (150-450); RBC Distribution Width CV 13.3 % (11.6-14.6); RBC Distribution Width SD 44.9 fl (35.1-43.9); Red Blood Count 4.51 M/mm3 (4.2-5.4); White Blood Count 6.8 K/mm3 (4.4-11.0)
[2024-08-20 18:01] LABS: ALB/GLOB Ratio 1.3 RATIO (0.9-2.4); AST(SGOT) 18 U/L (<=31); Alanine Aminotransfer ALT/SGPT 29 U/L (<=34); Albumin, Serum 4.1 g/dL (3.5-5.0); Alkaline Phosphatase 83 U/L (35-104); Anion Gap 12 (5-15); BUN 14 mg/dL (4-19); BUN/Creat Ratio 25.4 RATIO (10-20); Calcium,Total 9.4 mg/dL (7.6-11.0); Carbon Dioxide 26.7 mmol/L (21.0-32.0); Chloride 101 mmol/L (98-108); Cholesterol 161 mg/dL (<=200); Creatinine, Serum 0.56 mg/dL (0.70-1.20); EST Glomerular Filtration Rate 113 (>60); Globulin 3.1 g/dL (2.2-4.2); Glucose 94 mg/dL (70-99); High Density Lipoprotein 73 mg/dL; Low Density Lipoprotein Calc. 79 mg/dL; Potassium 3.9 mmol/L (3.3-5.1); Protein, Total 7.2 g/dL (5.9-8.4); Sodium Level 140 mmol/L (133-145); Total Bilirubin 0.36 mg/dL (0.00-1.30); Triglycerides 41 mg/dL; Very Low Density Lipoprotein 8 mg/dL (5-40); cholesterol:hdl ratio screen 2.19
== END | disposition home or self-care (01) ==
LOC: BFHLAB 14:30
PROVIDERS: PCP Family Medicine; Visit Provider Family Medicine
DX: Z00.00 Encounter for general adult medical examination without abnormal findings (principal); N95.1 Menopausal and female climacteric states; E03.9 Hypothyroidism, unspecified
CPT/HCPCS: 36415; 80053; 80061; 84443; 85025

== ENCOUNTER → 2024-09-15 | Outpatient (CLI) | payer OTHER, SELFPAY ==
--- NOTE | 2024-09-15 14:54 | BI_ITS ---
EXAM: SCRN MAMM (CAD)W/LILIANA BILAT DATE: 09/15/2024 CLINICAL HISTORY: F, Age 48 y/o , SCREENING TECHNIQUE: SCRN MAMM (CAD)W/LILIANA BILAT COMPARISON: Prior exam(s) dated 06/21/2022. FINDINGS: TISSUE DENSITY: There are scattered areas of fibroglandular density. Bilateral Breast Mammographic Findings: No significant masses, calcifications or other abnormalities are identified. BI/SCRN MAMM (CAD)W/LILIANA BILAT IMPRESSION: There is no mammographic evidence of malignancy. OVERALL FINAL ASSESSMENT BI-RADS 1: NEGATIVE. RECOMMENDATION: Routine annual follow-up in 1 Year A letter with findings and recommendations will be mailed to the patient. Reading Location: [id number]
--- NOTE | 2024-09-15 14:54 | BI_ITS ---
EXAM: SCRN MAMM (CAD)W/LILIANA BILAT DATE: 09/15/2024 CLINICAL HISTORY: F, Age 48 y/o , SCREENING TECHNIQUE: SCRN MAMM (CAD)W/LILIANA BILAT COMPARISON: Prior exam(s) dated 06/21/2022. FINDINGS: TISSUE DENSITY: There are scattered areas of fibroglandular density. Bilateral Breast Mammographic Findings: No significant masses, calcifications or other abnormalities are identified. BI/SCRN MAMM (CAD)W/LILIANA BILAT IMPRESSION: There is no mammographic evidence of malignancy. OVERALL FINAL ASSESSMENT BI-RADS 1: NEGATIVE. RECOMMENDATION: Routine annual follow-up in 1 Year A letter with findings and recommendations will be mailed to the patient. Reading Location: [id number]
== END | disposition home or self-care (01) ==
LOC: OPBI 14:53
PROVIDERS: PCP Family Medicine; Referring Provider Family Medicine; Visit Provider Family Medicine
DX: Z12.31 Encounter for screening mammogram for malignant neoplasm of breast (principal)
CPT/HCPCS: 77063; 77067